=== PATIENT | female | born 1980 | race Caucasian/White ===

== ENCOUNTER 2018-05-27 19:31 | Emergency (ER) | payer MEDICAID ==
[~2018-05-27] VITALS: Ht 154.9 cm; Wt 65.8 kg
[2018-05-27 20:00] VITALS: BP 124/85
== END 2018-05-28 03:43 | disposition left against medical advice (07) ==
LOC: ER 19:31
DX: R10.30 Lower abdominal pain, unspecified (principal); Z53.21 Procedure and treatment not carried out due to patient leaving prior to being seen by health care provider